=== PATIENT | female | born 1975 | race Caucasian/White ===

== ENCOUNTER 2017-07-05 11:02 | Emergency (ER) | payer OTHER ==
[~2017-07-05] VITALS: Ht 175.3 cm; Wt 68.9 kg
--- NOTE | 2017-07-05 11:10 | NUR ---
AAOX3, CAME TO ER C/O LOWER ABDOMINAL PAIN X 2 WEEKS, GETTING WORSE. NAUSEA, DIARRHEA. RESP IS EVEN AND UNLABORED WITH NAD NOTED. SKIN IS WARM AND NON DIAPHORETIC. AWAITING MD FOR EVAL.
--- NOTE | 2017-07-05 11:14 | NUR ---
DR GASCA AT BS FOR EVAL.
[2017-07-05] MEDS ORDERED: ONDANSETRON HCL/PF 4 MG/2 ML VIAL ONE (11:27)
[2017-07-05] MEDS ORDERED: ONDANSETRON HCL/PF 4 MG/2 ML VIAL IVP ONE (11:30)
[2017-07-05] MEDS ORDERED: IV NS 0.9% 1,000 ML BAG IV ONE (11:30)
[2017-07-05 11:33] LABS: BASOPHILS # (AUTO) 0.1 /CMM (0.0-0.2); EOSINOPHILS # (AUTO) 0.1 /CMM (0.0-0.7); EOSINOPHILS % (AUTO) 1.1 % (0.0-6.0); HEMATOCRIT 40 % (33-45); HEMOGLOBIN 13.4 g/dL (11.5-14.8); LYMPHOCYTES # (AUTO) 1.4 /CMM (0.8-4.8); LYMPHOCYTES % (AUTO) 26.1 % (20.0-44.0); MEAN CORPUSCULAR HEMOGLOBIN 33 PG (26.0-33.0); MEAN CORPUSCULAR HGB CONC 33 g/dl (31.0-36.0); MEAN CORPUSCULAR VOLUME 100 fL (82-100); MONOCYTES # (AUTO) 0.7 /CMM (0.1-1.30); MONOCYTES % (AUTO) 13.4 % (2.0-12.0); NEUTROPHILS # (AUTO) 3.1 /CMM (1.8-8.9); NEUTROPHILS % (AUTO) 58.4 % (43.0-81.0); PLATELET COUNT (AUTO) 233 /CMM (150-450); RDW COEFFICIENT OF VARIATION 13.7 (11.5-15.0); RED BLOOD CELL COUNT(AUTO) 4.04 MIL/uL (4.0-5.2); WHITE BLOOD COUNT (AUTO) 5.3 K/uL (4.3-11.0)
[2017-07-05 11:34] LABS: APPEARANCE,URINE CLEAR (CLEAR); BILIRUBIN,URINE 1+ (NEGATIVE); BLOOD, URINE NEGATIVE Ery/uL (NEGATIVE); COLOR,URINE YELLOW (YELLOW); KETONES,URINE TRACE (NEGATIVE); LEUKOCYTE ESTERASE ,URINE NEGATIVE (NEGATIVE); NITRITE, URINE NEGATIVE (NEGATIVE); PH,URINE 6.5 (5.0-8.0); PROTEIN,URINE TRACE mg/dl (NEGATIVE); UGLUCOSE NEGATIVE (NEGATIVE); UROBILINOGEN,URINE 0.2 EU/dL (0.2)
[2017-07-05 11:41] LABS: BACTERIA,URINE Many /HPF (None Seen); RBC,URINE 0-2 /HPF (0-2); SQUAMOUS EPITHELIAL CELL,UR Moderate /HPF (None Seen); WBC,URINE 0-2 /HPF (0-3)
[2017-07-05 11:44] LABS: CALCIUM, SERUM 9.3 mg/dL (8.5-10.1); CREATININE 0.8 mg/dL (0.6-1.3); POTASSIUM 3.6 mmol/L (3.5-5.1)
[2017-07-05 11:49] LABS: BILIRUBIN,DIRECT 0.2 mg/dL (0.0-0.2); BILIRUBIN,TOTAL 0.8 mg/dL (0.2-1.0); TOTAL PROTEIN, SERUM 8.2 g/dL (6.4-8.2)
--- NOTE | 2017-07-05 13:00 | NUR ---
IV removed. Catheter intact and site benign. Pressure and 4x4 applied to site. No bleeding noted.
--- NOTE | 2017-07-05 13:11 | NUR ---
Patient discharged to home in stable condition. Written and verbal after care instructions given. Patient verbalizes understanding of instruction.
[2017-07-05 13:12] VITALS: BP 116/72
== END 2017-07-05 13:13 | disposition home or self-care (01) ==
LOC: ER 11:03
DX: R10.12 Left upper quadrant pain (principal)
CPT/HCPCS: 36415; 80048-TC; 80076-TC; 81000-TC; 83690-TC; 84703-TC; 85025-TC; 87086-TC; A4606; J2405; J7030; Z7610

== ENCOUNTER 2017-07-15 22:01 | Emergency (ER) | payer OTHER ==
[~2017-07-15] VITALS: Ht 175.3 cm; Wt 68.9 kg
--- NOTE | 2017-07-15 22:34 | NUR ---
BIB FAMILY C/O RIGHT ABD PAIN RADIATING TO LEFT ABD SINCE 07/05. WAS SEEN HERE ON 07/05 DX NONSPECIFIC ABD PAIN. PT AOX3 RR EVEN AND UNLABORED. NO SOB NOTED. NAD NOTED. NO NVD AT THIS TIME. PT GOWNED WAITING FOR MD LOPEZ. URINE COLLECTED. SENT TO LAB
--- NOTE | 2017-07-15 22:45 | NUR ---
DR. MALHOTRA AT BEDSIDE. IV STARTED ON LEFT AC 20G, GOOD BLOOD RETURN. BLOOD DRAW SENT TO LAB
[2017-07-15 22:50] LABS: BASOPHILS # (AUTO) 0.1 /CMM (0.0-0.2); EOSINOPHILS # (AUTO) 0.2 /CMM (0.0-0.7); EOSINOPHILS % (AUTO) 1.9 % (0.0-6.0); HEMATOCRIT 39 % (33-45); HEMOGLOBIN 13.3 g/dL (11.5-14.8); LYMPHOCYTES # (AUTO) 2.8 /CMM (0.8-4.8); LYMPHOCYTES % (AUTO) 36.5 % (20.0-44.0); MEAN CORPUSCULAR HEMOGLOBIN 34 PG (26.0-33.0); MEAN CORPUSCULAR HGB CONC 34 g/dl (31.0-36.0); MEAN CORPUSCULAR VOLUME 100 fL (82-100); MONOCYTES # (AUTO) 0.7 /CMM (0.1-1.30); MONOCYTES % (AUTO) 9.1 % (2.0-12.0); NEUTROPHILS % (AUTO) 51.5 % (43.0-81.0); PLATELET COUNT (AUTO) 276 /CMM (150-450); RDW COEFFICIENT OF VARIATION 13.4 (11.5-15.0); RED BLOOD CELL COUNT(AUTO) 3.92 MIL/uL (4.0-5.2); WHITE BLOOD COUNT (AUTO) 7.8 K/uL (4.3-11.0)
[2017-07-15 22:51] LABS: APPEARANCE,URINE CLEAR (CLEAR); BILIRUBIN,URINE NEGATIVE (NEGATIVE); BLOOD, URINE NEGATIVE Ery/uL (NEGATIVE); KETONES,URINE NEGATIVE (NEGATIVE); LEUKOCYTE ESTERASE ,URINE NEGATIVE (NEGATIVE); NITRITE, URINE NEGATIVE (NEGATIVE); PROTEIN,URINE NEGATIVE (NEGATIVE); UGLUCOSE NEGATIVE (NEGATIVE); UROBILINOGEN,URINE 0.2 EU/dL (0.2)
[2017-07-15 22:59] LABS: CALCIUM, SERUM 8.5 mg/dL (8.5-10.1); CREATININE 0.7 mg/dL (0.6-1.3); POTASSIUM 3.6 mmol/L (3.5-5.1)
[2017-07-15 22:59] LABS: COLOR,URINE STRAW (YELLOW)
--- NOTE | 2017-07-15 23:03 | NUR ---
medicated patient as ordered by Dr Gusman.
[2017-07-15 23:05] LABS: ALBUMIN 4.1 g/dL (3.4-5.0); BILIRUBIN,DIRECT 0.1 mg/dL (0.0-0.2); BILIRUBIN,TOTAL 0.3 mg/dL (0.2-1.0); TOTAL PROTEIN, SERUM 8.2 g/dL (6.4-8.2)
--- NOTE | 2017-07-16 00:34 | NUR ---
IV removed. Catheter intact and site benign. Pressure and 4x4 applied to site. No bleeding noted. Patient discharged to home in stable condition. Written and verbal after care instructions given. Patient verbalizes understanding of instruction. Patient is ambulatory with steady gait, accompanied by . No further complaints.
[2017-07-16 00:36] VITALS: BP 122/74
== END 2017-07-16 00:37 | disposition home or self-care (01) ==
LOC: ER 22:06
DX: R19.7 Diarrhea, unspecified (principal); R10.9 Unspecified abdominal pain
CPT/HCPCS: 36415; 80048; 80076; 81001; 83690; 84703; 85025; 96361; 96374; 96375; 99284; A4606; J1885; J2405 ×2; J7030; Z7610; 81000-TC

== ENCOUNTER 2017-07-23 21:48 | Emergency (ER) | payer OTHER ==
[~2017-07-23] VITALS: Ht 175.3 cm; Wt 68.9 kg
--- NOTE | 2017-07-23 21:50 | NUR ---
AAOX3, CAME TO ER C/O EPIGASTRIC AND SEVERE HEADACHE X 2 WEEKS. SKIN IS WARM AND DRY. RESP IS EVEN AND UNLABORED WITH NAD NOTED. SKIN IS WARM AND DRY. AWAITING MD FOR EVAL.
--- NOTE | 2017-07-23 22:38 | NUR ---
URINE SAMPLE SENT TO LAB
[2017-07-23 22:44] LABS: BASOPHILS % (AUTO) 0.7 % (0.0-2.0); EOSINOPHILS # (AUTO) 0.2 /CMM (0.0-0.7); EOSINOPHILS % (AUTO) 2.5 % (0.0-6.0); HEMATOCRIT 36 % (33-45); HEMOGLOBIN 12.5 g/dL (11.5-14.8); LYMPHOCYTES # (AUTO) 1.8 /CMM (0.8-4.8); LYMPHOCYTES % (AUTO) 28.8 % (20.0-44.0); MEAN CORPUSCULAR HEMOGLOBIN 34 PG (26.0-33.0); MEAN CORPUSCULAR HGB CONC 34 g/dl (31.0-36.0); MEAN CORPUSCULAR VOLUME 100 fL (82-100); MONOCYTES # (AUTO) 0.7 /CMM (0.1-1.30); MONOCYTES % (AUTO) 11.5 % (2.0-12.0); NEUTROPHILS # (AUTO) 3.6 /CMM (1.8-8.9); NEUTROPHILS % (AUTO) 56.5 % (43.0-81.0); PLATELET COUNT (AUTO) 171 /CMM (150-450); RDW COEFFICIENT OF VARIATION 13.7 (11.5-15.0); RED BLOOD CELL COUNT(AUTO) 3.64 MIL/uL (4.0-5.2); WHITE BLOOD COUNT (AUTO) 6.3 K/uL (4.3-11.0)
[2017-07-23 22:46] LABS: APPEARANCE,URINE CLOUDY (CLEAR); BILIRUBIN,URINE NEGATIVE (NEGATIVE); BLOOD, URINE NEGATIVE Ery/uL (NEGATIVE); COLOR,URINE YELLOW (YELLOW); KETONES,URINE NEGATIVE (NEGATIVE); LEUKOCYTE ESTERASE ,URINE NEGATIVE (NEGATIVE); NITRITE, URINE NEGATIVE (NEGATIVE); PROTEIN,URINE NEGATIVE (NEGATIVE); UGLUCOSE NEGATIVE (NEGATIVE); UROBILINOGEN,URINE 0.2 EU/dL (0.2)
[2017-07-23 22:51] LABS: BACTERIA,URINE Rare /HPF (None Seen); RBC,URINE NONE SEEN /HPF (0-2); SQUAMOUS EPITHELIAL CELL,UR Few /HPF (None Seen); URINE AMORPHOUS URATE Many /HPF (None Seen); WBC,URINE NONE SEEN /HPF (0-3)
[2017-07-23 22:56] LABS: CALCIUM, SERUM 9.1 mg/dL (8.5-10.1); CARBON DIOXIDE 28 mmol/L (21-32); CHLORIDE 105 mmol/L (98-107); CREATININE 0.6 mg/dL (0.6-1.3); GLUCOSE 98 mg/dL (74-106); POTASSIUM 3.9 mmol/L (3.5-5.1); SODIUM SERUM 140 mmol/L (136-145); UREA NITROGEN, BLOOD 12 mg/dL (7-18)
[2017-07-23 22:59] LABS: ALANINE AMINOTRANSFERASE 46 U/L (12-78); ALKALINE PHOSPHATASE 64 U/L (46-116); ASPARTATE AMINOTRANSFERASE 47 U/L (15-37); BILIRUBIN,DIRECT 0.2 mg/dL (0.0-0.2); BILIRUBIN,TOTAL 0.7 mg/dL (0.2-1.0); LIPASE 372 U/L (73-393); TOTAL PROTEIN, SERUM 7.8 g/dL (6.4-8.2)
[2017-07-23 23:04] LABS: TROPONIN I < 0.017 ng/mL (0.00-0.056)
--- NOTE | 2017-07-23 23:46 | NUR ---
STOOL SAMPLE SENT
--- NOTE | 2017-07-24 00:07 | NUR ---
Note yumione in EDM - 07/24/17 at 0009 by DICK IV removed. Catheter intact and site benign. Pressure and 4x4 applied to site. No bleeding noted. Patient discharged to home in stable condition. Written and verbal after care instructions given. Patient verbalizes understanding of instruction. ambulatory with a steady gait. instructed not to drive. pt verbalize understanding accompanied by family.
[2017-07-24 00:10] VITALS: BP 132/78
== END 2017-07-24 00:10 | disposition home or self-care (01) ==
LOC: ER 21:52
DX: R10.13 Epigastric pain (principal); R10.32 Left lower quadrant pain; G44.209 Tension-type headache, unspecified, not intractable; R19.7 Diarrhea, unspecified
CPT/HCPCS: 36415; 71010; 80048; 80076; 81001; 83690; 84484; 84703; 85025; 87015; 87045; 87427 ×3; 89055; 93005; 99285; A4606; Z7610; 81000-TC

== ENCOUNTER 2017-09-01 16:35 | Emergency (ER) | payer OTHER ==
[~2017-09-01] VITALS: Ht 175.3 cm; Wt 68.0 kg
[2017-09-01 16:46] VITALS: BP 115/80
== END 2017-09-01 17:36 | disposition home or self-care (01) ==
LOC: ER 16:45
DX: R10.13 Epigastric pain (principal); G89.29 Other chronic pain; B96.81 Helicobacter pylori [H. pylori] as the cause of diseases classified elsewhere
CPT/HCPCS: 99281; A4606; Z7610; Z7502

== ENCOUNTER 2017-09-02 05:28 | Emergency (ER) | payer OTHER ==
[~2017-09-02] VITALS: Ht 175.3 cm; Wt 68.0 kg
[2017-09-02 05:37] VITALS: BP 123/81
--- NOTE | 2017-09-02 05:40 | NUR ---
BB SELF; PT AMBULATORY TO ER BED 8 C/O "HIGH BLOOD PRESSURE" PT AOX3 RR EVEN AND UNLABORED. NO SOB NOTED. NAD NOTED. NO NVD AT THIS TIME. PT GOWNED AND PLACED ON MONITOR, DR MAR AT BEDSIDE FOR EVAL.
--- NOTE | 2017-09-02 05:41 | NUR ---
PT NOTED ANXIOUS.
== END 2017-09-02 06:03 | disposition home or self-care (01) ==
LOC: ER 05:31
DX: Z00.8 Encounter for other general examination (principal); F41.9 Anxiety disorder, unspecified; G89.29 Other chronic pain
CPT/HCPCS: 99281; A4606; Z7610; Z7502

== ENCOUNTER 2017-12-25 19:55 | Emergency (ER) | payer OTHER ==
[~2017-12-25] VITALS: Ht 172.7 cm; Wt 70.3 kg
--- NOTE | 2017-12-25 20:38 | NUR ---
PT AMBULATORY TO ER BED 15. PT BIB SELF C/O CP/SOB/TINGLING X 3 HOURS;APPEARS VERY EMOTIONAL;HX ANXIETY. PT PLACED ON DISTRIBUTOR CLEANER. VSS/RESP EVEN UNLABORED/NAD NOTED/SKIN WARM AND DRY/DENIES N-V-D/AOX4. AWAITING MD LOPEZ.
--- NOTE | 2017-12-25 21:41 | NUR ---
HOME DEMONSTRATION AGENT AT BEDSIDE FOR EVAL.
--- NOTE | 2017-12-25 21:50 | NUR ---
EMT AT BEDSIDE FOR EKG.
[2017-12-25] MEDS ORDERED: HYDROCODONE/APAP 5/325MG 1 EACH TABLET ONE (21:51)
[2017-12-25] MEDS ORDERED: LORAZEPAM 1 MG TABLET ONE (21:52)
--- NOTE | 2017-12-25 21:56 | NUR ---
LAB AT BEDSIDE FOR DRAW.
[2017-12-25] MEDS ORDERED: LORAZEPAM 1 MG TABLET PO ONE (22:00)
[2017-12-25] MEDS ORDERED: HYDROCODONE/APAP 5/325MG 1 EACH TABLET PO ONE (22:00)
[2017-12-25 22:13] LABS: BASOPHILS % (AUTO) 0.6 % (0.0-2.0); EOSINOPHILS # (AUTO) 0.1 /CMM (0.0-0.7); EOSINOPHILS % (AUTO) 1.3 % (0.0-6.0); HEMATOCRIT 36 % (33-45); HEMOGLOBIN 12.6 g/dL (11.5-14.8); LYMPHOCYTES # (AUTO) 1.8 /CMM (0.8-4.8); LYMPHOCYTES % (AUTO) 21.8 % (20.0-44.0); MEAN CORPUSCULAR HEMOGLOBIN 33 PG (26.0-33.0); MEAN CORPUSCULAR HGB CONC 35 g/dl (31.0-36.0); MEAN CORPUSCULAR VOLUME 96 fL (82-100); MONOCYTES # (AUTO) 0.6 /CMM (0.1-1.30); MONOCYTES % (AUTO) 6.8 % (2.0-12.0); NEUTROPHILS # (AUTO) 5.6 /CMM (1.8-8.9); NEUTROPHILS % (AUTO) 69.5 % (43.0-81.0); PLATELET COUNT (AUTO) 246 /CMM (150-450); RDW COEFFICIENT OF VARIATION 12.6 (11.5-15.0); RED BLOOD CELL COUNT(AUTO) 3.79 MIL/uL (4.0-5.2); WHITE BLOOD COUNT (AUTO) 8.1 K/uL (4.3-11.0)
[2017-12-25 22:19] LABS: CARBON DIOXIDE 26 mmol/L (21-32); CHLORIDE 104 mmol/L (98-107); CREATININE 0.7 mg/dL (0.6-1.3); GLUCOSE 113 mg/dL (74-106); SODIUM SERUM 141 mmol/L (136-145); UREA NITROGEN, BLOOD 12 mg/dL (7-18)
[2017-12-25 22:20] LABS: INR 1.02 (0.87-1.13)
[2017-12-25 22:24] LABS: TROPONIN I < 0.017 ng/mL (0.00-0.056)
[2017-12-25 22:25] LABS: ALANINE AMINOTRANSFERASE 37 U/L (12-78); ALBUMIN 3.6 g/dL (3.4-5.0); ALKALINE PHOSPHATASE 42 U/L (46-116); ASPARTATE AMINOTRANSFERASE 19 U/L (15-37); BILIRUBIN,DIRECT 0.1 mg/dL (0.0-0.2); BILIRUBIN,TOTAL 0.5 mg/dL (0.2-1.0); LIPASE 177 U/L (73-393); TOTAL PROTEIN, SERUM 7.6 g/dL (6.4-8.2)
--- NOTE | 2017-12-25 23:15 | NUR ---
Patient discharged with family to home in stable condition. Written and verbal after care instructions given, patient instructed do to drive. Patient verbalizes understanding of instruction. Patient is awake and alert to self, day, and place. Patient ambulatory with a steady gait.
[2017-12-25 23:17] VITALS: BP 103/54
== END 2017-12-25 23:18 | disposition home or self-care (01) ==
LOC: ER 19:58
DX: R07.89 Other chest pain (principal); R51 Headache; K76.0 Fatty (change of) liver, not elsewhere classified; F41.9 Anxiety disorder, unspecified; G89.29 Other chronic pain; I10 Essential (primary) hypertension; Z41.1 Encounter for cosmetic surgery
CPT/HCPCS: 36415; 71045-TC; 80048-TC; 80076-TC; 83690-TC; 84484-TC; 85025-TC; 85730-TC; A4606; Z7610

== ENCOUNTER 2018-07-09 02:42 | Emergency (ER) | payer BC, OTHER ==
[~2018-07-09] VITALS: Ht 175.3 cm; Wt 74.8 kg
--- NOTE | 2018-07-09 02:55 | NUR ---
PT BIB SELF COMPLAINING OF MIDSTERNAL CP RADIATING TO LEFT SIDE, SHOULDER, AND BACK [id number]. PT DESCRIBES PAIN "NEEDLE PRICKS". PT DENIES NVD, SOB. PT AAOX4. RESPIRATIONS EVEN AND UNLABORED. SKIN WARM AND INTACT. NO ACUTE DISTRESS NOTED AT THIS TIMES. VITAL SIGNS STABLE. PT PLACED IN GOWN AND ON MONITOR, WAITING MD EVALUATION
[2018-07-09] MEDS ORDERED: NITROGLYCERIN PACKET 1 GM PACKET TD ONE (03:30)
[2018-07-09] MEDS ORDERED: ASPIRIN 81 MG TAB.CHEW PO ONE (03:30)
--- NOTE | 2018-07-09 03:30 | NUR ---
MD AT BEDSIDE FOR EVALUATION
[2018-07-09] MEDS ORDERED: NITROGLYCERIN PACKET 1 GM PACKET ONE (03:33)
[2018-07-09] MEDS ORDERED: ASPIRIN 81 MG TAB.CHEW ONE (03:33)
[2018-07-09] MEDS ORDERED: ALPRAZOLAM 0.5 MG TABLET ONE (03:38)
[2018-07-09 03:41] LABS: BASOPHILS % (AUTO) 0.7 % (0.0-2.0); EOSINOPHILS % (AUTO) 3.1 % (0.0-6.0); HEMATOCRIT 35 % (33-45); HEMOGLOBIN 11.8 g/dL (11.5-14.8); MEAN CORPUSCULAR HGB CONC 34 g/dl (31.0-36.0); MEAN CORPUSCULAR VOLUME 97 fL (82-100); MONOCYTES # (AUTO) 0.5 /CMM (0.1-1.30); MONOCYTES % (AUTO) 7.3 % (2.0-12.0); NEUTROPHILS # (AUTO) 3.7 /CMM (1.8-8.9); NEUTROPHILS % (AUTO) 57.9 % (43.0-81.0); PLATELET COUNT (AUTO) 185 /CMM (150-450); RDW COEFFICIENT OF VARIATION 12.1 (11.5-15.0); RED BLOOD CELL COUNT(AUTO) 3.62 MIL/uL (4.0-5.2); WHITE BLOOD COUNT (AUTO) 6.4 K/uL (4.3-11.0)
--- NOTE | 2018-07-09 03:56 | NUR ---
RADIOLOGY AT BEDSIDE FOR CXR
[2018-07-09] MEDS ORDERED: ALPRAZOLAM 0.5 MG TABLET PO ONE (04:00)
[2018-07-09 04:06] LABS: TROPONIN I < 0.017 ng/mL (0.00-0.056)
[2018-07-09 04:09] LABS: ALANINE AMINOTRANSFERASE 27 U/L (12-78); ALBUMIN 3.5 g/dL (3.4-5.0); ALKALINE PHOSPHATASE 51 U/L (46-116); ASPARTATE AMINOTRANSFERASE 20 U/L (15-37); BILIRUBIN,DIRECT 0.1 mg/dL (0.0-0.2); BILIRUBIN,TOTAL 0.6 mg/dL (0.2-1.0); CALCIUM, SERUM 8.8 mg/dL (8.5-10.1); CARBON DIOXIDE 27 mmol/L (21-32); CHLORIDE 102 mmol/L (98-107); CREATININE 0.7 mg/dL (0.6-1.3); GLUCOSE 90 mg/dL (74-106); POTASSIUM 3.9 mmol/L (3.5-5.1); SODIUM SERUM 137 mmol/L (136-145); UREA NITROGEN, BLOOD 14 mg/dL (7-18)
[2018-07-09 04:31] LABS: B-TYPE NATRIURETIC PEPTIDE 58 PG/ML (0-125)
--- NOTE | 2018-07-09 04:43 | NUR ---
Patient discharged to home in stable condition. Written and verbal after care instructions given. Patient verbalizes understanding of instruction. IV removed. Catheter intact and site benign. Pressure and 4x4 applied to site. No bleeding noted. Pt ambulatory with a steady gait
[2018-07-09 04:44] VITALS: BP 120/56
== END 2018-07-09 04:44 | disposition home or self-care (01) ==
LOC: ER 02:42
DX: R07.89 Other chest pain (principal); F41.9 Anxiety disorder, unspecified; I10 Essential (primary) hypertension; G89.29 Other chronic pain; Z87.19 Personal history of other diseases of the digestive system; Z98.890 Other specified postprocedural states; Z98.82 Breast implant status; Z60.2 Problems related to living alone
CPT/HCPCS: 36415; 71045; 80048; 80076; 83880; 84484; 85025; 93005; 99285; A4606; Z7610

== ENCOUNTER 2019-03-02 03:47 | Emergency (ER) | payer OTHER ==
[~2019-03-02] VITALS: Ht 175.3 cm; Wt 75.3 kg
--- NOTE | 2019-03-02 04:52 | NUR ---
URINE COLLECTED AND SENT TO LAB
--- NOTE | 2019-03-02 05:15 | NUR ---
TECH AT BEDSIDE FOR EKG
--- NOTE | 2019-03-02 05:25 | NUR ---
BLOOD DRAWN AND GIVEN TO LAB
[2019-03-02 05:26] LABS: APPEARANCE,URINE CLEAR (CLEAR); BILIRUBIN,URINE NEGATIVE (NEGATIVE); BLOOD, URINE TRACE Ery/uL (NEGATIVE); COLOR,URINE YELLOW (YELLOW); KETONES,URINE TRACE (NEGATIVE); LEUKOCYTE ESTERASE ,URINE NEGATIVE (NEGATIVE); NITRITE, URINE NEGATIVE (NEGATIVE); PH,URINE 7.5 (5.0-8.0); PROTEIN,URINE NEGATIVE (NEGATIVE); UGLUCOSE NEGATIVE (NEGATIVE); UROBILINOGEN,URINE 0.2 EU/dL (0.2)
[2019-03-02 05:28] LABS: BASOPHILS # (AUTO) 0.1 /CMM (0.0-0.2); BASOPHILS % (AUTO) 1.3 % (0.0-2.0); EOSINOPHILS % (AUTO) 4.3 % (0.0-6.0); HEMATOCRIT 37 % (33-45); HEMOGLOBIN 12.7 g/dL (11.5-14.8); LYMPHOCYTES # (AUTO) 1.2 /CMM (0.8-4.8); LYMPHOCYTES % (AUTO) 26.6 % (20.0-44.0); MEAN CORPUSCULAR HGB CONC 35 g/dl (31.0-36.0); MEAN CORPUSCULAR VOLUME 96 fL (82-100); MONOCYTES # (AUTO) 0.6 /CMM (0.1-1.30); MONOCYTES % (AUTO) 13.8 % (2.0-12.0); NEUTROPHILS # (AUTO) 2.4 /CMM (1.8-8.9); PLATELET COUNT (AUTO) 169 /CMM (150-450); RED BLOOD CELL COUNT(AUTO) 3.82 MIL/uL (4.0-5.2); WHITE BLOOD COUNT (AUTO) 4.5 K/uL (4.3-11.0)
[2019-03-02 05:30] LABS: BACTERIA,URINE Rare /HPF (None Seen); RBC,URINE 0-2 /HPF (0-2); SQUAMOUS EPITHELIAL CELL,UR Rare /HPF (None Seen); WBC,URINE 0-2 /HPF (0-3)
[2019-03-02] MEDS ORDERED: IV NS 0.9% 500 ML BAG IV ONE (05:30)
[2019-03-02 05:38] LABS: CALCIUM, SERUM 8.7 mg/dL (8.5-10.1); CARBON DIOXIDE 29 mmol/L (21-32); CHLORIDE 100 mmol/L (98-107); CREATININE 0.8 mg/dL (0.6-1.3); GLUCOSE 92 mg/dL (74-106); POTASSIUM 3.5 mmol/L (3.5-5.1); SODIUM SERUM 138 mmol/L (136-145); UREA NITROGEN, BLOOD 9 mg/dL (7-18)
[2019-03-02 05:44] LABS: ALANINE AMINOTRANSFERASE 57 U/L (12-78); ALBUMIN 3.7 g/dL (3.4-5.0); ALKALINE PHOSPHATASE 72 U/L (46-116); ASPARTATE AMINOTRANSFERASE 51 U/L (15-37); BILIRUBIN,DIRECT 0.2 mg/dL (0.0-0.2); BILIRUBIN,TOTAL 0.8 mg/dL (0.2-1.0); LIPASE 138 U/L (73-393); TOTAL PROTEIN, SERUM 7.3 g/dL (6.4-8.2)
--- NOTE | 2019-03-02 07:31 | NUR ---
REPORT GIVEN TO NAZIA VAUGHN FOR UDAY
[2019-03-02] MEDS ORDERED: IBUPROFEN 600 MG TABLET PO ONE (08:00)
[2019-03-02 08:46] VITALS: BP 132/88
--- NOTE | 2019-03-02 08:48 | NUR ---
Patient discharged to home in stable condition. Written and verbal after care instructions given. Patient verbalizes understanding of instruction.IV removed. Catheter intact and site benign. Pressure and 4x4 applied to site. No bleeding noted.
== END 2019-03-02 08:47 | disposition home or self-care (01) ==
LOC: ER 03:47
DX: M54.6 Pain in thoracic spine (principal); I10 Essential (primary) hypertension; F41.9 Anxiety disorder, unspecified; Z98.890 Other specified postprocedural states; Z60.2 Problems related to living alone
CPT/HCPCS: 36415; 71045; 74176; 76856; 80048; 80076; 81001; 83690; 84484; 84703; 85025; 85730; 93005; 99284; J7030; 81000-TC

== ENCOUNTER 2022-12-18 15:27 | Emergency (ER) | payer MEDICAID, OTHER ==
[~2022-12-18] VITALS: Ht 175.3 cm; Wt 72.6 kg
--- NOTE | 2022-12-18 15:53 | NUR ---
TO ER BED 1. BIBS C/O LEFT SIDED CHEST PRESSURE R/T LEFT ARM SINCE 07 THIS MORNING. PAIN 8/10 ON PAIN SCALE. AWAITING MD LOPEZ.
--- NOTE | 2022-12-18 16:10 | NUR ---
SALEEM [place] 20G. LABS COLLECTED AND SENT
[2022-12-18 16:41] LABS: BASOPHILS % (AUTO) 0.2 % (0.0-2.0); EOSINOPHILS % (AUTO) 0.4 % (0.0-6.0); HEMATOCRIT 38 % (33-45); HEMOGLOBIN 12.3 g/dL (11.5-14.8); LYMPHOCYTES # (AUTO) 2.2 K/uL (0.8-4.8); LYMPHOCYTES % (AUTO) 19.3 % (20.0-44.0); MEAN CORPUSCULAR HGB CONC 33 g/dl (31.0-36.0); MEAN CORPUSCULAR VOLUME 93 fL (82-100); MONOCYTES # (AUTO) 0.7 K/uL (0.1-1.30); MONOCYTES % (AUTO) 6.6 % (2.0-12.0); NEUTROPHILS # (AUTO) 8.2 K/uL (1.8-8.9); NEUTROPHILS % (AUTO) 73.5 % (43.0-81.0); PLATELET COUNT (AUTO) 273 K/uL (150-450); RED BLOOD CELL COUNT(AUTO) 4.07 MIL/uL (4.0-5.2); WHITE BLOOD COUNT (AUTO) 11.2 K/uL (4.3-11.0)
[2022-12-18 16:50] LABS: CALCIUM, SERUM 9.2 mg/dL (8.5-10.1); CARBON DIOXIDE 26 mmol/L (21-32); CHLORIDE 100 mmol/L (98-107); CREATININE 0.8 mg/dL (0.6-1.3); GLUCOSE 107 mg/dL (74-106); POTASSIUM 3.6 mmol/L (3.5-5.1); SODIUM SERUM 136 mmol/L (136-145); UREA NITROGEN, BLOOD 14 mg/dL (7-18)
[2022-12-18 16:58] LABS: ALANINE AMINOTRANSFERASE 23 U/L (12-78); ALBUMIN 3.9 g/dL (3.4-5.0); ALKALINE PHOSPHATASE 63 U/L (46-116); ASPARTATE AMINOTRANSFERASE 15 U/L (15-37); BILIRUBIN,DIRECT 0.1 mg/dL (0.0-0.2); BILIRUBIN,TOTAL 0.4 mg/dL (0.2-1.0); TOTAL PROTEIN, SERUM 7.9 g/dL (6.4-8.2)
[2022-12-18] MEDS ORDERED: IV NS 0.9% 1,000 ML IV ONE (17:00)
[2022-12-18] MEDS ORDERED: FAMOTIDINE/PF INJ 20 MG/2 ML VIAL IV ONE ×2 (17:00→17:40)
[2022-12-18] MEDS ORDERED: ONDANSETRON HCL/PF 4 MG/2 ML VIAL IV ONE (17:00)
[2022-12-18] MEDS ORDERED: ONDANSETRON HCL/PF 4 MG/2 ML VIAL ONE (17:40)
[2022-12-18] MEDS ORDERED: FAMO40TA7 PO (18:07)
[2022-12-18 18:18] VITALS: BP 112/74
== END 2022-12-18 18:19 | disposition home or self-care (01) ==
LOC: ER 15:45
DX: R07.89 Other chest pain (principal); K29.70 Gastritis, unspecified, without bleeding; I10 Essential (primary) hypertension; F41.9 Anxiety disorder, unspecified; Z98.890 Other specified postprocedural states; Z79.899 Other long term (current) drug therapy; Z60.2 Problems related to living alone
CPT/HCPCS: 99285; 96374; 71045; 96375; 93005 ×3; 85025; 80048; 80076; 36415; 84484; 83880; J3490; J2405

== ENCOUNTER 2023-01-12 05:10 | Emergency (ER) | payer MEDICAID ==
[~2023-01-12] VITALS: Ht 175.3 cm; Wt 72.6 kg
[~2023-01-12 05:10] MED LIST: FAMO40TA7 PO
--- NOTE | 2023-01-12 05:29 | NUR ---
BIB FAMILY FOR C/O MID STERNAL BURNING SENSATION X3 HOURS. ADMITTED SMOKING, DRINKING HALF BOTTLE OF [place] 4PM YESTERDAY, AND USING COCAINE AT APPROX 3AM. PATIENT PLACED COMFORTABLY IN BED. VITALS CHECKED.
--- NOTE | 2023-01-12 05:41 | NUR ---
EKG COMPLETED AT BEDSIDE
--- NOTE | 2023-01-12 05:55 | NUR ---
URINE COLLECTED AND SENT TO LAB
[2023-01-12 06:03] LABS: BASOPHILS # (AUTO) 0.1 K/uL (0.0-0.2); BASOPHILS % (AUTO) 0.7 % (0.0-2.0); EOSINOPHILS % (AUTO) 0.1 % (0.0-6.0); HEMATOCRIT 35 % (33-45); HEMOGLOBIN 11.7 g/dL (11.5-14.8); LYMPHOCYTES # (AUTO) 1.2 K/uL (0.8-4.8); LYMPHOCYTES % (AUTO) 14.3 % (20.0-44.0); MEAN CORPUSCULAR HGB CONC 34 g/dl (31.0-36.0); MEAN CORPUSCULAR VOLUME 94 fL (82-100); MONOCYTES # (AUTO) 0.7 K/uL (0.1-1.30); MONOCYTES % (AUTO) 8.4 % (2.0-12.0); NEUTROPHILS # (AUTO) 6.4 K/uL (1.8-8.9); NEUTROPHILS % (AUTO) 76.5 % (43.0-81.0); PLATELET COUNT (AUTO) 278 K/uL (150-450); RED BLOOD CELL COUNT(AUTO) 3.69 MIL/uL (4.0-5.2); WHITE BLOOD COUNT (AUTO) 8.4 K/uL (4.3-11.0)
[2023-01-12 06:19] LABS: ALANINE AMINOTRANSFERASE 31 U/L (12-78); ALBUMIN 3.8 g/dL (3.4-5.0); ALKALINE PHOSPHATASE 61 U/L (46-116); ASPARTATE AMINOTRANSFERASE 19 U/L (15-37); BILIRUBIN,DIRECT 0.2 mg/dL (0.0-0.2); BILIRUBIN,TOTAL 0.7 mg/dL (0.2-1.0); CALCIUM, SERUM 8.6 mg/dL (8.5-10.1); CARBON DIOXIDE 27 mmol/L (21-32); CHLORIDE 100 mmol/L (98-107); CREATININE 0.7 mg/dL (0.6-1.3); GLUCOSE 103 mg/dL (74-106); POTASSIUM 3.7 mmol/L (3.5-5.1); SODIUM SERUM 135 mmol/L (136-145); TOTAL PROTEIN, SERUM 7.3 g/dL (6.4-8.2); UREA NITROGEN, BLOOD 10 mg/dL (7-18)
[2023-01-12 07:01] VITALS: BP 110/75
--- NOTE | 2023-01-12 07:01 | NUR ---
Patient discharged to home in stable condition. Written and verbal after care instructions given. Patient verbalizes understanding of instruction. IV removed. Catheter intact and site benign. Pressure and 4x4 applied to site. No bleeding noted.
== END 2023-01-12 07:02 | disposition home or self-care (01) ==
LOC: ER 05:12
DX: R07.89 Other chest pain (principal); F14.10 Cocaine abuse, uncomplicated; I10 Essential (primary) hypertension; F41.9 Anxiety disorder, unspecified; F17.200 Nicotine dependence, unspecified, uncomplicated; Z98.82 Breast implant status
CPT/HCPCS: 36415; 71045-TC; 80048-TC; 80076-TC; 84484-TC; 84703-TC; 85025-TC

== ENCOUNTER 2023-05-21 09:08 | Emergency (ER) | payer MEDICAID ==
[~2023-05-21] VITALS: Ht 175.3 cm; Wt 77.1 kg
[2023-05-21 09:16] VITALS: BP 114/77; TEMP 98.4
[2023-05-21] MEDS ORDERED: PRED50TA PO (09:40)
[2023-05-21] MEDS ORDERED: predniSONE 20 MG TABLET ONE (09:52)
[2023-05-21] MEDS ORDERED: predniSONE 50 MG TABLET PO ONE (10:00)
[2023-05-21 10:04] VITALS: O2SAT 99
== END 2023-05-21 10:21 | disposition home or self-care (01) ==
LOC: ER 09:20
DX: R21 Rash and other nonspecific skin eruption (principal); I10 Essential (primary) hypertension; F41.9 Anxiety disorder, unspecified; Z98.82 Breast implant status

== ENCOUNTER 2025-02-28 14:25 | Emergency (ER) | payer MEDICAID ==
[~2025-02-28] VITALS: Ht 175.3 cm; Wt 72.6 kg
[~2025-02-28 14:25] MED LIST changes: +PRED50TA PO
[2025-02-28] MEDS ORDERED: PSEU-182 PO (16:40)
[2025-02-28] MEDS ORDERED: PENI500T PO (16:40)
[2025-02-28] MEDS ORDERED: PANT40TA49 PO (16:40)
[2025-02-28 16:56] VITALS: BP 91/61; TEMP 98.1; O2SAT 100
== END 2025-02-28 16:56 | disposition home or self-care (01) ==
LOC: ER 14:30
DX: R07.0 Pain in throat (principal); I10 Essential (primary) hypertension; K21.9 Gastro-esophageal reflux disease without esophagitis; F17.200 Nicotine dependence, unspecified, uncomplicated; Z79.52 Long term (current) use of systemic steroids; Z79.899 Other long term (current) drug therapy
CPT/HCPCS: 70360-TC